=== PATIENT | female | born 1950 | race Caucasian/White ===

== ENCOUNTER 2017-03-08 17:10 | Inpatient (IN) ==
--- NOTE | 2017-03-08 18:45 | Emergency Department Note ---
START Narrative - START START: Start note: 66-year-old right-hand dominant person presents after being bitten by her family dog at about 5:30 this morning. She says the dog's food aggressive. She try to bring the dog and after receiving [place] was bitten on the knuckle of the right index finger and on the right thumb shows a lymphangitic streak going from the thumb to the past the wrist past forearm past the antecubital fossa in the midportion of the medial brachial area. Patient also needs a tetanus booster since she thinks is been greater than 10 years. I discussed the evening team of Dr. VALDOVINOS & CHITRA arriving at 1900 tonight. And they would take the would do a complete evaluation and assessment. I discussed with the patient she will need a tetanus booster IV antibiotics lab tests and IV and possibly admission for IV antibiotics due to the lymphatic streak up across to joints. Patient is in stable condition tolerating UniSyn blood work and tetanus booster. Patient in stable condition
[2017-03-08] MEDS ORDERED: Tdap (Boostrix) Vaccine 0.5 ML SYRINGE IM ONE (18:46)
[2017-03-08] MEDS ORDERED: Ampicillin/Sulbactam 3,000 MG in 0.9 % Sodium Chloride Mini Bag 100 ML IVPB ONE (18:46)
[2017-03-08] MEDS ORDERED: Ibuprofen 600 MG TABLET PO ONE (19:23)
[2017-03-08 19:24] LABS: Basophils % 0.3 %; Eosinophils # 0.1 K/mcL (0.0-0.6); Eosinophils % 0.5 %; Hematocrit 41.8 % (35.3-44.9); Hemoglobin 14.2 g/dL (11.5-15.4); Immature Granulocytes % 0.3 % (0-4); Lymphocytes # 1.4 K/mcL (0.6-4.6); Lymphocytes % 9.8 %; Mean Corpuscular Hemoglobin 30.9 pg (28.0-33.3); Mean Corpuscular Volume 91.1 fL (83.0-100.0); Mean Platelet Volume 10.5 fL (9.4-12.4); Monocytes % 7.1 %; Platelet Count 190 K/mcL (140-400); Red Blood Count 4.59 M/mcL (3.82-4.97); Red Cell Distribution Width 12.8 % (11.5-14.5)
--- NOTE | 2017-03-08 19:29 | Emergency Department Note ---
Disposition Clinical Impression: Lymphangitis, Bite by animal Disposition: Admitted As Inpatient Condition: Good Animal Bite HPI - General Chief Complaint: ED Animal Bite Stated Complaint: dog bite Time Seen by Provider: 03/08/17 19:16 Source: patient Mode of arrival: ambulatory Limitations: no limitations Nursing Notes Reviewed: Yes Vital Signs Reviewed: Yes - History of Present Illness HPI Narrative: 66-year-old female with past medical history of thyroid disease presents with redness, pain, chest swelling and streaking up her right arm after a dog bite of hours prior to arrival. She states that her raheem was eating [place] bugs on her porch and she tried to pull him away from the Rozina bugs to bring him inside and he bit her right hand. He bit her index finger and thumb. She has had worsening swelling, redness, and streaking all the way up to her axilla over the last 6 hours. It has worsened while she was waiting to see me in the emergency department. She admits to mild subjective fever and chills. She denies any nausea or vomiting. She denies any weakness or numbness. She denies diabetes or other immunocompromise state. She states that her last tetanus shot was at least 10 years ago. She denies any other recent illness or injury. She denies chest pain, shortness of breath, abdominal pain, change in urination or bowel movements, lower extremity edema or calf tenderness. Her dog is up-to-date on its shots and acting normally otherwise. Pt Subjective Complaint: animal bite - Related Data Home Medications Medication Instructions Recorded Confirmed Alprazolam [Xanax 0.25 MG Tablet] 0.25 mg PO BID PRN 03/08/17 03/08/17 Aspirin [Lo-Dose Aspirin EC] 81 mg PO QAM 03/08/17 03/08/17 Gabapentin [Neurontin] 300 mg PO TID PRN 03/08/17 03/08/17 Glucosamn/Condroitn/C/Mn/[place] 1 tab PO QAM 03/08/17 03/08/17 [[facility] Glucosamine [place] Cplt] Levothyroxine [Synthroid] 112 mcg PO QAM 03/08/17 03/08/17 Multivitamin [Multi-Day Vitamins] 1 tab PO QAM 03/08/17 03/08/17 Simvastatin [Zocor] 10 mg PO QPM 03/08/17 03/08/17 Allergies Allergy/AdvReac Type Severity Reaction Status Date / Time acetaminophen [From Percocet] AdvReac Gastrointestinal Verified 03/08/17 20:25 Upset hydrocodone [From Vicodin] AdvReac Gastrointestinal Verified 03/08/17 20:25 Upset Oxycodone [From Percocet] AdvReac Gastrointestinal Verified 03/08/17 20:25 Upset All systems ED: reviewed and negative except as stated. Past Medical History - Past Medical History Attestation: Yes The following information was validated with the patient. 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 - Social History Smoking Status: Never smoker Alcohol use: Reports: occasionally Drug use: Reports: none Physical Exam - Head Head exam: atraumatic, normocephalic, normal inspection - Eye Eye exam: Present: normal appearance, PERRL, EOMI - ENT ENT exam: normal exam, normal oropharynx, mucous membranes moist - Neck Neck exam: Present: normal inspection, full ROM, trachea midline - Chest Chest inspection: Present: normal inspection, symmetric chest wall rise - Respiratory Respiratory exam: Clear to auscultation bilaterally without wheezes rales or rhonchi Cardiovascular Cardiovascular exam: Present: regular rate, normal rhythm, normal heart sounds - Abdominal Exam Abdominal exam: Present: soft, Non-Tender. Absent: tenderness, distention, guarding, rebound, rigidity - Extremities Exam There is a puncture wound to the right index finger and thumb consistent with dog bite. There is significant erythema and swelling to the hand diffusely and lymphangitis streaking up into her axilla. - Back Exam Back exam: Present: normal inspection, full ROM. Absent: tenderness, CVA tenderness (R), CVA tenderness (L) - Neurological Exam Neurological exam: Present: alert, oriented X3, CN II-XII intact - Psychiatric Psychiatric exam: Present: normal affect, normal mood - Skin Skin exam: Present: warm, dry, intact, normal color - General Limitations: no limitations General appearance: alert Course - Reevaluation(s) Reevaluation #1: Admitted for dog bite with rapidly progressive lymphangitis. Received Unasyn in the ED. Vital Signs Temperature 99.6 F 03/08/17 17:57 Pulse Rate 86 03/08/17 17:57 Respiratory Rate 16 03/08/17 17:57 Blood Pressure 175/83 03/08/17 17:57 O2 Sat by Pulse Oximetry 98 03/08/17 17:57 Temperature 98.4 F 03/09/17 03:28 Pulse Rate 66 03/09/17 03:28 Respiratory Rate 16 03/09/17 03:28 Blood Pressure 106/55 03/09/17 03:28 O2 Sat by Pulse Oximetry 96 03/09/17 03:28 Oxygen Delivery Oxygen Delivery Room Air Animal Bite - Lab Data Result diagrams: 03/09/17 04:51 03/09/17 04:51 Lab Results 03/08/17 03/08/17 Range/Units 19:17 19:17 WBC 14.6 H (4.3-11.1) K/mcL RBC 4.59 (3.82-4.97) M/mcL Hgb 14.2 (11.5-15.4) g/dL Hct 41.8 (35.3-44.9) % MCV 91.1 (83.0-100.0) fL MCH 30.9 (28.0-33.3) pg MCHC 34.0 (31.6-35.5) g/dL RDW 12.8 (11.5-14.5) % Plt Count 190 (140-400) K/mcL MPV 10.5 (9.4-12.4) fL Immature Gran % 0.3 (0-4) % Seg Neutrophils % 82.0 % Lymphocytes % 9.8 % Monocytes % 7.1 % Eosinophils % 0.5 % Basophils % 0.3 % Neutrophils # 12.0 H (1.6-8.9) K/mcL Lymphocytes # 1.4 (0.6-4.6) K/mcL Monocytes # 1.0 (0.0-1.3) K/mcL Eosinophils # 0.1 (0.0-0.6) K/mcL Basophils # 0.0 (0.0-0.2) K/mcL Sodium 140 (136-145) mEq/L Potassium 4.2 (3.5-4.5) mEq/L Chloride 104 (98-109) mEq/L Carbon Dioxide 27 (19-29) mEq/L BUN 24 H (7-20) mg/dL Creatinine 0.81 (0.57-1.11) mg/dL Est GFR ( Amer) > 60 (> 60) Est GFR (Non-Af Amer) > 60 (> 60) BUN/Creatinine Ratio 30 H (6-26) Glucose 102 H (70-99) mg/dL Calculated Osmolality 294 (280-300) Calcium 9.6 (8.6-10.8) mg/dL Attestation Statement - Attestation Attestation: I, Vitor Degroot, examined this patient and my medical decision-making was reviewed with the MANAGER TALENT MANAGEMENT/PA/Advanced Practice Nurse/Resident Physician. I agree with the documented findings, disposition and treatment plan as described except to the extent set forth below. 66-year-old female presents with pain to the right upper extremity. Patient states she was bitten by her dog this morning and has since had increasing erythema and pain to the bite sites. Patient now has erythema streaking proximally. She denies fever, chills, nausea, vomiting. Patient will be admitted for IV antibiotics. The dog's service and she will be able to watch for signs concerning for rabies however the patient dog is fully vaccinated.
[2017-03-08 19:43] LABS: BUN/Creatinine Ratio 30 (6-26); Blood Urea Nitrogen 24 mg/dL (7-20); Calcium 9.6 mg/dL (8.6-10.8); Carbon Dioxide 27 mEq/L (19-29); Chloride 104 mEq/L (98-109); Glucose 102 mg/dL (70-99); Osmolality,Calculated 294 (280-300); Potassium 4.2 mEq/L (3.5-4.5); Sodium 140 mEq/L (136-145); eGFR For African Americans > 60 (> 60); eGFR For Non-African Americans > 60 (> 60)
[2017-03-08] MEDS ORDERED: Naloxone 0.4 MG/ML INJ IVP PRN (21:22)
[2017-03-08] MEDS ORDERED: Ibuprofen 400 MG TABLET PO PRN (21:22)
[2017-03-08] MEDS ORDERED: Gabapentin 300 MG CAPSULE PO PRN (21:26)
[2017-03-08] MEDS ORDERED: ALPRAZolam 0.25 MG TABLET PO PRN (21:26)
--- NOTE | 2017-03-08 21:38 | Internal Med History&Physical ---
Date of Encounter: 03/08/17 Time of Encounter: 21:34 Assessment and Plan (1) Cellulitis Current visit: Yes Status: Acute Patient reports her dog bit her on her right hand this morning at 5am. She applied bandaids and went to work. On her way home, she noted swelling and redness spreading up her right arm. She reports subjective fever and chills this evening. On exam, she has a puncture wound in her right thumb and right second knuckle, there is swelling and erythema spreading from her hand up the inside of her arm towards her axilla. Erythema seems to have receded from marking after first dose of Unasyn. She is hemodynamically stable. Blood cultures drawn and sent. IVPB unasyn q6 hours. Xray of right thumb and consult orthopedics as concern for infection in joint Qualifiers: Site of cellulitis: extremity Site of cellulitis of extremity: upper extremity Laterality: right Qualified Code(s): L03.113 - Cellulitis of right upper limb (2) Dog bite Current visit: Yes Status: Acute Patient reports her dog bit her on her right hand this morning at 5am. She applied bandaids and went to work. On her way home, she noted swelling and redness spreading up her right arm. On exam, she has a puncture wound in her right thumb and right second knuckle, there is swelling and erythema spreading from her hand up the inside of her arm towards her axilla. Erythema seems to have receded from marking after first dose of Unasyn. IVPB unasyn q6 hours. ibuprofen PRN for pain. Qualifiers: Encounter type: initial encounter Qualified Code(s): W54.0XXA - Bitten by dog, initial encounter (3) DVT prophylaxis Current visit: Yes Status: Acute encourage ambulation anti-embolic stockings Lovenox 40mg SQ daily Internal Medicine - H&P: HPI Chief complaint: dog bite Admitted From: Emergency Dept Plans for Post Hospital Care: Home History of present illness: Ms. Valenzuela is a 66 year old female with hypothyroid and hyperlipidemia who presented to the emergency room today with complaints of swelling and redness in her hand and arm after her dog bit her this morning. She reports her bit her at 5am this morning, breaking the skin of the right thumb and right second knuckle. She put a bandaid on it and went to work. She reports on her way home from work, she noticed her thumb and hand were swollen and there was redness streaking up her arm. She also reports experiencing some chills and subjective fever while waiting in the ED waiting room. She denies any headache , lightheadedness, chest pain, shortness of breath. Evaluation in the ED revealed elevated WBC of 14.6. Temperature was 99.6. Other labs grossly normal. Blood cultures were drawn and she was started on Unasyn. On exam, patient had swelling of the right hand and right thumb with erythema spreading up her arm towards her axilla. The erythema was marked earlier by the ED, and it appeared that some of the erythema had receded already, after having a dose of Unasyn. Heart had regular rate and rhythm and lungs were clear bilaterally to auscultation. Past Med Surg Social Fam HX - Past Medical History Medical history: cancer (melanoma), hyperlipidemia, thyroid disease, other - Past Surgical History Surgical History: hysterectomy, other (tubal ligation) - Social History Smoking Status: Never smoker Alcohol use: occasionally Drug use: none - Family History Mother Living Status: Cause of : pneumonia Father Living Status: Hx Family Cardiac Disorders: Yes Hx Family Respiratory Disorders: Yes Internal Medicine - H&P: Meds Alprazolam [Xanax 0.25 MG Tablet] 0.25 mg PO BID PRN 03/08/17 [History] Aspirin [Lo-Dose Aspirin EC] 81 mg PO QAM 03/08/17 [History] Gabapentin [Neurontin] 300 mg PO TID PRN 03/08/17 [History] Glucosamn/Condroitn/C/Mn/[place] [[facility] Glucosamine [place] Cplt] 1 tab PO QAM 11/24 [History] Levothyroxine [Synthroid] 112 mcg PO QAM 03/08/17 [History] Multivitamin [Multi-Day Vitamins] 1 tab PO QAM 03/08/17 [History] Simvastatin [Zocor] 10 mg PO QPM 03/08/17 [History] Allergies acetaminophen [From Percocet] Adverse Reaction (Verified 03/08/17 20:25) Gastrointestinal Upset hydrocodone [From Vicodin] Adverse Reaction (Verified 03/08/17 20:25) Gastrointestinal Upset Oxycodone [From Percocet] Adverse Reaction (Verified 03/08/17 20:25) Gastrointestinal Upset All Systems PM: A 10-system review of systems was performed and is negative for pertinent findings except as documented above in the HPI. - Constitutional Constitutional: chills, fever(s), no night sweats - EENT Eyes: no change in vision, no discharge, no pain, no photophobia Ears: no ear discharge, no ear pain, no tinnitus Nose, mouth and throat: no dysphagia, no nasal discharge, no neck pain, no sore throat - Cardiovascular Cardiovascular ROS IM: no chest pain, no diaphoresis, no dyspnea, no lightheadedness, no palpitations, no syncope - Respiratory Respiratory: no cough, no dyspnea, no wheezing, no excessive phlegm production - Gastrointestinal Gastrointestinal: no abdominal pain, no diarrhea, no hematemesis, no hematochezia, no melena, no nausea, no vomiting - Genitourinary Genitourinary: no change in urinary stream, no dysuria, no flank pain, no hematuria - Musculoskeletal Musculoskeletal ROS IM: joint swelling (right hand and thumb), no numbness, no tingling - Integumentary Integumentary IM: erythema, no rash, no unusual bruising - Neurological Neurological ROS: no confusion, no convulsions, no focal weakness, no numbness, no tingling, no tremor(s) - Hematologic/Lymphatic Hematologic/Lymphatic: no easy bruising - Constitutional Vitals: Temp Pulse Resp BP Pulse Ox 99.6 F 86 18 127/69 98 03/08/17 17:57 03/08/17 17:57 03/08/17 21:29 03/08/17 21:29 03/08/17 17:57 General appearance: Present: A&O X 3, pleasant, no acute distress - Head Head exam: Present: atraumatic, normocephalic - Eye Eye exam: Present: PERRL, conjuntiva pink, sclera anicteric Pupils: Present: PERRL - Neck Neck exam general surgery: Present: supple, trachea midline. Absent: lymphadenopathy - Respiratory Respiratory exam: Present: CTAB. Absent: accessory muscle use, rales, rhonchi, wheezes - Cardiovascular Cardiovascular exam: Present: RRR, +S1, +S2. Absent: diastolic murmur, gallop, rubs, systolic murmur - GI/Abdominal GI/Abdominal exam: Present: normal bowel sounds, soft, no peritoneal signs. Absent: distended, tenderness - Extremities Exam Extremities exam: Present: warm, radial pulses palpable and symetrical. Absent : calf tenderness, cyanotic, pedal edema - Expanded Upper Extremities Exam Upper Arm exam: Present: erythema (right arm streaking) Forearm wrist exam: Present: erythema Hand wrist exam: Present: erythema, swelling, tenderness - Neurological Exam Neurological exam: Present: CN II-XII intact, oriented X3, no focal deficits. Absent: facial droop, speech deficit - Skin Skin exam: Present: dry Additional comments: puncture wounds in right thumb and right second joint. Internal Med - H&P Results - Labs CBC & Chem 7: 03/08/17 19:17 03/08/17 19:17 Labs: All Lab Results (24 Hours) 03/08/17 03/08/17 Range/Units 19:17 19:17 WBC 14.6 H (4.3-11.1) K/mcL RBC 4.59 (3.82-4.97) M/mcL Hgb 14.2 (11.5-15.4) g/dL Hct 41.8 (35.3-44.9) % MCV 91.1 (83.0-100.0) fL MCH 30.9 (28.0-33.3) pg MCHC 34.0 (31.6-35.5) g/dL RDW 12.8 (11.5-14.5) % Plt Count 190 (140-400) K/mcL MPV 10.5 (9.4-12.4) fL Immature Gran % 0.3 (0-4) % Seg Neutrophils % 82.0 % Lymphocytes % 9.8 % Monocytes % 7.1 % Eosinophils % 0.5 % Basophils % 0.3 % Neutrophils # 12.0 H (1.6-8.9) K/mcL Lymphocytes # 1.4 (0.6-4.6) K/mcL Monocytes # 1.0 (0.0-1.3) K/mcL Eosinophils # 0.1 (0.0-0.6) K/mcL Basophils # 0.0 (0.0-0.2) K/mcL Sodium 140 (136-145) mEq/L Potassium 4.2 (3.5-4.5) mEq/L Chloride 104 (98-109) mEq/L Carbon Dioxide 27 (19-29) mEq/L BUN 24 H (7-20) mg/dL Creatinine 0.81 (0.57-1.11) mg/dL Est GFR ( Amer) > 60 (> 60) Est GFR (Non-Af Amer) > 60 (> 60) BUN/Creatinine Ratio 30 H (6-26) Glucose 102 H (70-99) mg/dL Calculated Osmolality 294 (280-300) Calcium 9.6 (8.6-10.8) mg/dL
[2017-03-08] MEDS: Ampicillin/Sulbactam 3,000 MG in 0.9 % Sodium Chloride Mini Bag 100 ML IVPB SCH (23:26)
[2017-03-09 05:09] LABS: Basophils % 0.3 %; Eosinophils # 0.1 K/mcL (0.0-0.6); Eosinophils % 1.3 %; Hematocrit 37.9 % (35.3-44.9); Hemoglobin 12.8 g/dL (11.5-15.4); Immature Granulocytes % 0.3 % (0-4); Lymphocytes # 1.4 K/mcL (0.6-4.6); Mean Corpuscular HGB Conc 33.8 g/dL (31.6-35.5); Mean Corpuscular Hemoglobin 30.6 pg (28.0-33.3); Mean Corpuscular Volume 90.7 fL (83.0-100.0); Mean Platelet Volume 10.7 fL (9.4-12.4); Monocytes # 1.1 K/mcL (0.0-1.3); Monocytes % 10.7 %; Neutrophils # 7.6 K/mcL (1.6-8.9); Platelet Count 182 K/mcL (140-400); Red Blood Count 4.18 M/mcL (3.82-4.97); Red Cell Distribution Width 12.7 % (11.5-14.5); Segmented Neutrophils % 73.4 %
[2017-03-09] MEDS: Ampicillin/Sulbactam 3,000 MG in 0.9 % Sodium Chloride Mini Bag 100 ML IVPB SCH ×4 (05:42→23:42)
[2017-03-09 05:45] LABS: BUN/Creatinine Ratio 23 (6-26); Blood Urea Nitrogen 16 mg/dL (7-20); Calcium 8.8 mg/dL (8.6-10.8); Carbon Dioxide 24 mEq/L (19-29); Chloride 110 mEq/L (98-109); Glucose 98 mg/dL (70-99); Osmolality,Calculated 293 (280-300); Potassium 3.5 mEq/L (3.5-4.5); Sodium 141 mEq/L (136-145); eGFR For African Americans > 60 (> 60); eGFR For Non-African Americans > 60 (> 60)
[2017-03-09] MEDS: Aspirin Enteric Coated 81 MG Tablet PO SCH (07:49)
--- NOTE | 2017-03-09 13:41 | Internal Med Progress Note ---
Date of Encounter: 03/09/17 Time of Encounter: 09:45 - Assessment and plan (1) Cellulitis Current Visit: Yes Status: Acute Assessment and plan: Improved from yesterday. Erythema and edema have lessened and are now inside the pen markings. Patient's thumb still remains swollen but her movement and range of motion has improved. Plain films of her hand are unremarkable. Called orthopedic doctor Uzair- awaiting to hear back. Appreciate Ortho recommendations on further imaging and possible I&D of thumb as indicated. Radial pulses strong. Capillary refill brisk to all fingers. Continue Unasyn. Leukocytosis resolved. We will observe overnight. Likely transition to by mouth antibiotics tomorrow. ITS Impressions Finger X-Ray 03/09/17 23:13 IMPRESSION: No acute osseous injury of the right thumb. 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 D/ / 03/09/2017 07:16:24 Boo Luz MD / [facility] Interpreting Provider: Boo Luz MD (2) Dog bite Current Visit: Yes Status: Acute Assessment and plan: Patient was bit by her Dachshund whom she states is up to date on it's shots. Qualifiers: Encounter type: initial encounter Qualified Code(s): W54.0XXA - Bitten by dog, initial encounter (3) Leukocytosis Current Visit: Yes Status: Resolved (4) DVT prophylaxis Current Visit: Yes Status: Acute Assessment and plan: Subcutaneous Lovenox ordered - Subjective Interval history: Patient seen and examined. On examination, patient sitting upright in bed talking on the phone. Patient denies pain and states that her thumb just feels really tight. She states that the swelling has gone down and she is able to move her hand better than yesterday. She denies any nausea or vomiting. - Constitutional Vitals: Temp Pulse Resp BP Pulse Ox 98.5 F 65 17 109/60 97 03/09/17 11:18 03/09/17 11:18 03/09/17 11:18 03/09/17 11:18 03/09/17 11:18 General appearance: Present: A&O X 3, pleasant, no acute distress, answers questions appropriately - Head Head exam: Present: atraumatic, normocephalic - Eye Eye exam: Present: PERRL, conjuntiva pink, sclera anicteric Pupils: Present: PERRL - Neck Neck exam general surgery: Present: supple, trachea midline. Absent: lymphadenopathy - Respiratory Respiratory exam: Present: CTAB. Absent: accessory muscle use, rales, respiratory distress, rhonchi, wheezes - Cardiovascular Cardiovascular exam: Present: RRR, +S1, +S2. Absent: diastolic murmur, gallop, rubs, systolic murmur - GI/Abdominal GI/Abdominal exam: Present: normal bowel sounds, soft, no peritoneal signs. Absent: distended, tenderness - Extremities Exam Extremities exam: Present: warm, radial pulses palpable and symetrical. Absent : calf tenderness, cyanotic, pedal edema - Expanded Upper Extremities Exam Upper Arm exam: Present: erythema Elbow exam: Present: erythema Forearm wrist exam: Present: erythema Hand wrist exam: Present: erythema, swelling, tenderness. Absent: normal inspection Vascular exam: Present: normal capillary refill. Absent: vascular compromise - Neurological Exam Neurological exam: Present: alert, CN II-XII intact, oriented X3, no focal deficits. Absent: pronater drift, facial droop, speech deficit - Skin Skin exam: Present: dry, intact, normal color, warm - Expanded Skin Exam Type of lesion: Present: bite/sting Distribution of rash: Present: RUE Description of rash: Present: erythematous, swelling, tenderness Internal Medicine: Result - Labs CBC & Chem 7: 03/09/17 04:51 03/09/17 04:51 Labs: Short CBC 03/09/17 Range/Units 04:51 WBC 10.3 (4.3-11.1) K/mcL Hgb 12.8 (11.5-15.4) g/dL Hct 37.9 (35.3-44.9) % Plt Count 182 (140-400) K/mcL Neutrophils # 7.6 (1.6-8.9) K/mcL BMP 03/09/17 04:51 Sodium 141 Potassium 3.5 Chloride 110 H Carbon Dioxide 24 BUN 16 Creatinine 0.71 Glucose 98 Calcium 8.8 - Impressions Impressions Finger X-Ray 03/09/17 23:13 IMPRESSION: No acute osseous injury of the right thumb. 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 D/ / 03/09/2017 07:16:24 Boo Luz MD / [facility] Interpreting Provider: Boo Luz MD Consult Discharge Plan - Plan Referrals: Ronit Brady, NETWORK CONTR[employer]PERAT[employer] SUPERVISOR [Advanced Practice Nurse] - 03/15/17 9:45 am
--- NOTE | 2017-03-09 16:13 | Orthopedic Consult Note ---
Date of Encounter: 03/09/17 Time of Encounter: 16:00 Assessment and Plan (1) Cellulitis Current Visit: Yes Status: Acute Erythema and swelling appear to be improving after IV abx started yesterday. No focal abscess to drain at this time. Will continue to monitor to see if this develops. Continue IV abx per hospitalist. Continue ROM of hand and wrist. Continue elevation of RUE. Recommend elevation by hanging extremity with stockinette from IV pole overnight. Patient also examined by Dr. Dunne who agreed with this plan. Qualifiers: Site of cellulitis: extremity Site of cellulitis of extremity: upper extremity Laterality: right Qualified Code(s): L03.113 - Cellulitis of right upper limb History of Present Illness Chief complaint: right hand dog bite HPI: Ms. Valenzuela is a 66 year old female who presented to the ER yesterday after her dog bit her right hand/ thumb around 5am. She started to notice red streaking up forearm and increase swelling to hand shortly after that. Denies any pain at this time but has had some "throbbing/ thumping" in the thumb. Denies any numbness. States motion has been limited due to swelling. Denies any fevers, chest pain, SOB or any other symptoms at this time. Past Med Surg Social Fam HX - Past Medical History Medical history: cancer, hyperlipidemia, thyroid disease, other Psychiatric history: anxiety - Past Surgical History Surgical History: hysterectomy, other (tubal ligation) - Social History Smoking Status: Never smoker Alcohol use: occasionally Drug use: none - Family History Mother Living Status: Cause of : pneumonia Father Name: Adams Rod Living Status: Age at : 79 Cause of : COPD complications Hx Family Cardiac Disorders: Yes Hx Family Respiratory Disorders: Yes Hx Family Cancer: Yes (Skin CA) Hx Family GI Disorders: No Hx Family Genitourinary Disorders: No Hx Family Endocrine Disorder: No Hx Family Musculoskeletal Disorders: No Hx Family Neuromuscular Disorders: No Hx Family Neurologic Disorders: No Hx Family HEENT Disorders: No Hx Family Autoimmune Disorders: No Hx Family Reproductive Disorders: No Hx Family Psychosocial Disorders: No Hx Family Medical Disorders: No Medications and Allergies Alprazolam [Xanax 0.25 MG Tablet] 0.25 mg PO BID PRN 03/08/17 [History] Aspirin [Lo-Dose Aspirin EC] 81 mg PO QAM 03/08/17 [History] Gabapentin [Neurontin] 300 mg PO TID PRN 03/08/17 [History] Glucosamn/Condroitn/C/Mn/[place] [[facility] Glucosamine Chondroit Cplt] 1 tab PO QAM 11/24 [History] Levothyroxine [Synthroid] 112 mcg PO QAM 03/08/17 [History] Multivitamin [Multi-Day Vitamins] 1 tab PO QAM 03/08/17 [History] Simvastatin [Zocor] 10 mg PO QPM 03/08/17 [History] Allergies acetaminophen [From Percocet] Adverse Reaction (Verified 03/08/17 20:25) Gastrointestinal Upset hydrocodone [From Vicodin] Adverse Reaction (Verified 03/08/17 20:25) Gastrointestinal Upset Oxycodone [From Percocet] Adverse Reaction (Verified 03/08/17 20:25) Gastrointestinal Upset All Systems Reviewed: A 10-system review of systems was performed and is negative for pertinent findings except as documented above in the HPI. - Constitutional Constitutional: as per HPI - Cardiovascular Cardiovascular: as per HPI - Respiratory Respiratory: as per HPI - Musculoskeletal Musculoskeletal: as per HPI Physical Exam - Constitutional Vitals: Temp Pulse Resp BP Pulse Ox 98.0 F 64 17 123/75 96 03/09/17 15:07 03/09/17 15:07 03/09/17 15:07 03/09/17 15:07 03/09/17 15:07 - Wrist & Hand right Location of pain: thumb (Right thumb has moderate erythema with puncture wound to volar ulnar side, 2 puncture wounds also noted to dorsal 3rd MCPJ. No active drainage from puncture wounds. Erythema localized to thumb and does not radiate up to forearm, no erythema within the markings on forearm. thumb has limited ROM at IP joint secondary to swelling around IP joint, swelling not uniform through thumb. able to fully extend thumb, not held in flexed position. No tenderness to palpation along tendon sheath. NV intact with brisk cap refill. ) Results - Labs Result Diagrams: 03/09/17 04:51 03/09/17 04:51 Labs: Abnormal lab results Chloride 110 mEq/L (98-109) H 03/09/17 04:51 H & H 03/09/17 Range/Units 04:51 Hgb 12.8 (11.5-15.4) g/dL Hct 37.9 (35.3-44.9) % All other labs normal. - Diagnostic results Wrist/Hand x-ray: report reviewed, image reviewed Consult Discharge Plan - Plan Referrals: Ronit Brady, PASTRY FINISHER [Advanced Practice Nurse] - 03/15/17 9:45 am - Attending Attestation Case and plan of care discussed with supervising physician who was available for all aspects of care.
[2017-03-10] MEDS: Ampicillin/Sulbactam 3,000 MG in 0.9 % Sodium Chloride Mini Bag 100 ML IVPB SCH ×4 (06:06→23:48)
[2017-03-10] MEDS: *HR* Enoxaparin 40 MG/0.4 ML SYRINGE SQ SCH (06:07)
[2017-03-10] MEDS: Aspirin Enteric Coated 81 MG Tablet PO SCH (08:25)
--- NOTE | 2017-03-10 08:58 | Internal Med Progress Note ---
Date of Encounter: 03/10/17 Time of Encounter: 08:54 - Assessment and plan (1) Cellulitis Current Visit: Yes Status: Acute Assessment and plan: Improved, leukocytosis resolved Ortho consult note seen Decreased swelling, erythema, normal capillary refill. Will continue IV antibiotics, change to po prior to discharge If no abscess collection by tommorow a.m, will discharge Continue Unasyn, continue limb elevation ITS Impressions Finger X-Ray 03/09/17 23:13 IMPRESSION: No acute osseous injury of the right thumb. 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 D/ / 03/09/2017 07:16:24 Boo Luz MD / earnold Interpreting Provider: Boo Luz MD Qualifiers: Site of cellulitis: extremity Site of cellulitis of extremity: upper extremity Laterality: right Qualified Code(s): L03.113 - Cellulitis of right upper limb (2) Dog bite Current Visit: Yes Status: Acute Assessment and plan: Patient was bit by her Dachshund whom she states is up to date on it's shots. Qualifiers: Encounter type: initial encounter Qualified Code(s): W54.0XXA - Bitten by dog, initial encounter (3) DVT prophylaxis Current Visit: Yes Status: Acute Assessment and plan: Subcutaneous Lovenox ordered - Subjective Interval history: Seen and evaluated at bedside No new complains 66 F being managed for cellulitis of R thumb following a dog bite, here was associated lymphangitis and difficulty moving her right first interphalangeal joints. Per Patient is has resolved. She was reviewed by orthopedic surgery yesterday, no intervention planned. Finger X-ray showed osteoarthritis, with no bony involvement of cellulitis. At the time of review, there is no visible collection that needs to be drained. - Constitutional Vitals: Temp Pulse Resp BP Pulse Ox 97.5 F L 58 16 107/53 97 03/10/17 06:55 03/10/17 06:55 03/10/17 06:55 03/10/17 06:55 03/10/17 08:00 General appearance: Present: A&O X 3, pleasant, no acute distress, answers questions appropriately - Head Head exam: Present: atraumatic, normocephalic - Eye Eye exam: Present: PERRL, conjuntiva pink, sclera anicteric Pupils: Present: PERRL - Neck Neck exam general surgery: Present: supple, trachea midline. Absent: lymphadenopathy - Respiratory Respiratory exam: Present: CTAB. Absent: accessory muscle use, rales, rhonchi, wheezes - Cardiovascular Cardiovascular exam: Present: RRR, +S1, +S2. Absent: diastolic murmur, gallop, rubs, systolic murmur - GI/Abdominal GI/Abdominal exam: Present: normal bowel sounds, soft, no peritoneal signs. Absent: distended, tenderness - Extremities Exam Extremities exam: Present: warm, radial pulses palpable and symetrical. Absent : calf tenderness, cyanotic, pedal edema Additional comments: Right thumb with erythema and tenderness, mild swelling, no fluctuancy, no visible drainage, obvious dog bite site seen, normal capillary refill, patient is able to move her R thumb interphalangeal joints - Neurological Exam Neurological exam: Present: alert, CN II-XII intact, normal gait, oriented X3, no focal deficits. Absent: pronater drift, facial droop, speech deficit - Skin Skin exam: Present: dry, intact Internal Medicine: Result - Labs CBC & Chem 7: 03/09/17 04:51 03/09/17 04:51 Consult Discharge Plan - Plan Referrals: Ronit Brady CNP [Advanced Practice Nurse] - 03/15/17 9:45 am
--- NOTE | 2017-03-10 17:04 | Orthopedics Progress Note ---
Date of Encounter: 03/11/17 Time of Encounter: 12:30 - Assessment and Plan (1) Cellulitis Current Visit: Yes Status: Acute Erythema, swelling and ROM significantly improving. Puncture wound to thumb has small amount purulent drainage with no palpable fluctuance surrounding it. Continue IV abx per hospitalist and switch to PO for discharge. Wash wound with soap/water 3xdaily and keep covered with gauze dressing until closed. Continue ROM of hand and wrist. Continue elevation of RUE. Recommend elevation by hanging extremity with stockinette from IV pole overnight. Follow up with Ashly Srivastava PA-C in [facility] office in 1 week for re-evaluation. Office to fax appt card to floor. Qualifiers: Site of cellulitis: extremity Site of cellulitis of extremity: upper extremity Laterality: right Qualified Code(s): L03.113 - Cellulitis of right upper limb Subjective Principal diagnosis: right hand dog bite Interval history: Patient feeling well this morning with no concerns. No events overnight. She did keep RUE in stockinette hung from IV pole and swelling is much improved today. She has been working on ROM with improvement. She has noticed some drainage from the thumb puncture wound. Denies any pain or numbness in the right hand at this time. Objective Vital signs: Vital Signs Temp Pulse Resp BP Pulse Ox 03/10/17 14:34 97.7 F 59 16 149/77 98 03/10/17 11:41 97.9 F 65 16 141/68 96 03/10/17 08:00 97 03/10/17 06:55 97.5 F L 58 16 107/53 96 03/10/17 03:13 97.8 F 62 18 106/60 96 03/09/17 22:42 98.2 F 65 18 105/59 95 03/09/17 18:33 98.1 F 71 18 156/65 97 Intake and Output 03/10/17 03/10/17 03/10/17 07:59 15:59 23:59 Intake Total 200 / 200 360 / 360 Balance 200 / 200 360 / 360 Intake: IV Fluids 200 / 200 Unasyn 3,000 MG In 0.9 % 200 / 200 Sodium Chloride (Mini-Bag +) 100 ML @ 200 mls/hr IVPB Q6HR [facility] Rx#: [id number] Oral 360 / 360 Other: Meal Lunch Percent of Meal Consumed 75% # Voids 3 Incision: healing (The right thumb has minimal swelling and erythema around the puncture wound on volar ulnar side of IP joint, both decreased from yesterday. small drop purulent drainage from the puncture wound expressed with gentle pressure. No palpable fluctuance noted. No tenderness to palpation along tendon sheath. Almost full flexion of the thumb on AROM. NV intact with brisk cap refill.) - Labs CBC & BMP: 03/09/17 04:51 03/09/17 04:51 Labs: Abnormal lab results Chloride 110 mEq/L (98-109) H 03/09/17 04:51 Consult Discharge Plan - Plan Referrals: Ronit Brady [employer] [facility] [Advanced Practice Nurse] - 03/15/17 9:45 am
[2017-03-11] MEDS: Ampicillin/Sulbactam 3,000 MG in 0.9 % Sodium Chloride Mini Bag 100 ML IVPB SCH ×2 (06:28→11:35)
[2017-03-11] MEDS: *HR* Enoxaparin 40 MG/0.4 ML SYRINGE SQ SCH (06:29)
[2017-03-11] MEDS: Aspirin Enteric Coated 81 MG Tablet PO SCH (08:35)
--- NOTE | 2017-03-11 11:43 | Discharge Summary ---
Date of Encounter: 03/11/17 Time of Encounter: 11:42 - Discharge Diagnosis (1) Cellulitis Priority: Primary Status: Acute Qualifiers: Site of cellulitis: extremity Site of cellulitis of extremity: upper extremity Laterality: right Qualified Code(s): L03.113 - Cellulitis of right upper limb (2) Dog bite Priority: Primary Status: Acute Qualifiers: Encounter type: initial encounter Qualified Code(s): W54.0XXA - Bitten by dog, initial encounter (3) DVT prophylaxis Priority: Secondary Status: Acute - Discharge Medications Prescriptions: Amoxicillin/Clavulanate [Augmentin] 875 mg PO BIDWM #14 tablet Home Medications: Alprazolam [Xanax 0.25 MG Tablet] 0.25 mg PO BID PRN 03/08/17 [History] Aspirin [Lo-Dose Aspirin EC] 81 mg PO QAM 03/08/17 [History] Gabapentin [Neurontin] 300 mg PO TID PRN 03/08/17 [History] Glucosamn/Condroitn/C/Mn/[place] [[facility]vs Glucosamine Chondroit Cplt] 1 tab PO QAM 11/24 [History] Levothyroxine [Synthroid] 112 mcg PO QAM 03/08/17 [History] Multivitamin [Multi-Day Vitamins] 1 tab PO QAM 03/08/17 [History] Simvastatin [Zocor] 10 mg PO QPM 03/08/17 [History] Amoxicillin/Clavulanate [Augmentin] 875 mg PO BIDWM #14 tablet 03/11/17 [Rx] Allergies/Adverse Reactions: Allergies acetaminophen [From Percocet] Adverse Reaction (Verified 03/08/17 20:25) Gastrointestinal Upset hydrocodone [From Vicodin] Adverse Reaction (Verified 03/08/17 20:25) Gastrointestinal Upset Oxycodone [From Percocet] Adverse Reaction (Verified 03/08/17 20:25) Gastrointestinal Upset Date of admission: 03/09/17 13:46 Primary care physician: Mireya Mcintyre DO Discharging clinician: Tomi Bernardo Anticipated date of discharge: 03/11/17 - Patient Status Disposition: Home, Self-Care Condition: Good Functional capacity at discharge: independent ambulation Overall status at discharge: patient is back to baseline - Discharge Instructions Instructions: Amoxicillin/Clavulanate Potassium (By mouth), Animal Bite (DC) Follow Up With: Ashly Srivastava PAC [Physician Crown Attacher] - 03/17/17 8:45 am Ronit Brady SPEECH AND HEARING DIRECTOR [Advanced Practice Nurse] - 03/15/17 9:45 am - Diet and Activity Activity: resume usual activities as tolerated Diet: regular diet Interval History: See below Hospital course: Ms. Valenzuela is a 66 year old female with PMH of anxiety, hypothyroidism Admitted following a dog bite (immune per patient), for R thumb cellulitis . Imaging did not reveal abscess collection Patient improved significantly with Unasyn IV Orthopedics was consulted with no plans of intervention She received a booster shot of DTap She is discharged on Augmentin po to complete 10 days of therapy Strongly encouraged to follow up with orthopedics out-patient Plan of care discussed, verbalized understanding - Time Spent with Patient Total time spent providing and/or coordinating discharge services: Less than 30 minutes - Constitutional Vitals: Temp Pulse Resp BP Pulse Ox 97.7 F 63 14 128/77 98 03/11/17 07:01 03/11/17 07:01 03/11/17 07:01 03/11/17 07:01 03/11/17 07:01 General appearance: Present: A&O X 3, pleasant, no acute distress, answers questions appropriately - Head Head exam: Present: atraumatic, normocephalic - Eye Eye exam: Present: PERRL, conjuntiva pink, sclera anicteric Pupils: Present: PERRL - Neck Neck exam general surgery: Present: supple, trachea midline. Absent: lymphadenopathy - Respiratory Respiratory exam: Present: CTAB. Absent: accessory muscle use, rales, rhonchi, wheezes - Cardiovascular Cardiovascular exam: Present: RRR, +S1, +S2. Absent: diastolic murmur, gallop, rubs, systolic murmur - GI/Abdominal GI/Abdominal exam: Present: normal bowel sounds, soft, no peritoneal signs. Absent: distended, tenderness - Extremities Exam Extremities exam: Present: warm, radial pulses palpable and symetrical. Absent : calf tenderness, cyanotic, pedal edema Additional comments: Right thumb with erythema and tenderness, mild swelling, no fluctuancy, no visible drainage, obvious dog bite site seen, normal capillary refill, patient is able to move her R thumb interphalangeal joints - Neurological Exam Neurological exam: Present: alert, CN II-XII intact, oriented X3, no focal deficits. Absent: pronater drift, facial droop, speech deficit - Skin Skin exam: Present: dry, intact
[2017-03-11 11:48] VITALS: BP 130/76
--- NOTE | 2017-03-11 12:35 | Orthopedics Progress Note ---
Date of Encounter: 03/11/17 Time of Encounter: 11:50 - Assessment and Plan (1) Cellulitis Current Visit: Yes Status: Acute Erythema, swelling and ROM continue to improve. Puncture wound to thumb has small amount purulent drainage with no palpable fluctuance surrounding it. Continue IV abx per hospitalist and switch to PO augmentin for discharge. Wash wound with soap/water 3xdaily and keep covered with gauze dressing until closed. Continue ROM of hand and wrist. Continue elevation of RUE. Recommend elevation by hanging extremity with stockinette from IV pole overnight. Follow up with Ashly Srivastava PA-C in [facility] office on 03/17/17 at 8:45am. If any worsening over the weekend, call office to be seen on 03/15/17 instead. Qualifiers: Site of cellulitis: extremity Site of cellulitis of extremity: upper extremity Laterality: right Qualified Code(s): L03.113 - Cellulitis of right upper limb Subjective Principal diagnosis: right hand dog bite Interval history: Patient feeling well this morning with no concerns. No events overnight. She continued to elevate RUE in stockinette hung from IV pole and swelling continues to improve. She has been working on ROM with improvement. She has been able to push around open wound to express small amounts of drainage since yesterday. Denies any pain or numbness in the right hand at this time. Objective Vital signs: Vital Signs Temp Pulse Resp BP Pulse Ox 03/11/17 11:47 97.9 F 65 14 130/76 96 03/11/17 07:01 97.7 F 63 14 128/77 98 03/11/17 03:24 97.7 F 62 16 117/63 100 03/10/17 22:40 97.8 F 61 17 115/65 98 03/10/17 21:41 100 03/10/17 18:49 97.5 F L 77 18 147/79 100 03/10/17 14:34 97.7 F 59 16 149/77 98 Intake and Output 03/10/17 03/11/17 03/11/17 23:59 07:59 15:59 Intake Total 100 / 100 200 / 200 360 / 360 Balance 100 / 100 200 / 200 360 / 360 Intake: IV Fluids 100 / 100 200 / 200 Unasyn 3,000 MG In 0.9 % 100 / 100 200 / 200 Sodium Chloride (Mini-Bag +) 100 ML @ 200 mls/hr IVPB Q6HR [facility] Rx#: [id number] Oral 360 / 360 Other: Meal Breakfast Percent of Meal Consumed 100% Incision: red (Minimal swelling and erythema surrounding puncture wound on thumb. No tenderness to palpation but able to express small amount purulent drainage from the wound. Almost full AROM of thumb. NV intact.) - Labs CBC & BMP: 03/09/17 04:51 03/09/17 04:51 Labs: Abnormal lab results Chloride 110 mEq/L (98-109) H 03/09/17 04:51 Consult Discharge Plan - Plan Instructions: Amoxicillin/Clavulanate Potassium (By mouth), Animal Bite (DC) Referrals: Ashly Srivastava PAC [Physician Wet Sander] - 03/17/17 8:45 am Rnoit Brady REPLENISHMENT BUYER [Advanced Practice Nurse] - 03/15/17 9:45 am Prescriptions: Amoxicillin/Clavulanate [Augmentin] 875 mg PO BIDWM #14 tablet
== END 2017-03-11 13:00 | disposition home or self-care (01) | DRG 605 ==
LOC: 3BNU 17:10 → EMEROO 17:10 → SUATTDRO 21:00 → 3BNU 21:32 → SUATTDRO 03-09 13:46
PROVIDERS: ADMIT Nurse Practitioner Family; ATTEND Internal Medicine